=== PATIENT | male | born 1965 | race African-American/Black ===

== ENCOUNTER 2022-11-18 18:09 | Emergency (ER) | payer OTHER ==
[2022-11-18 18:40] VITALS: BP 135/93; PULSE 78; RESP 18; TEMP 98.4; BMI 33.0
[2022-11-18] MEDS ORDERED: KETOROLAC TROMETHAMINE 30 MG/1 ML VIAL IM ONE (19:48)
[2022-11-18] MEDS ORDERED: KETOROLAC TROMETHAMINE 30 MG/1 ML VIAL ONE (19:50)
== END 2022-11-18 20:42 | disposition left against medical advice (07) ==
LOC: JERFT 18:09
DX: M54.50 Low back pain, unspecified (principal); X50.0XXA Overexertion from strenuous movement or load, initial encounter; Y93.89 Activity, other specified; Y92.9 Unspecified place or not applicable
CPT/HCPCS: 99281-25

== ENCOUNTER 2024-01-15 12:56 | Emergency (ER) | payer BC, OTHER ==
[2024-01-15 13:10] VITALS: BP 152/111; PULSE 63; RESP 18; BMI 31.1
[2024-01-15] MEDS ORDERED: ACETAMINOPHEN 1000 MG/100 ML BAG IVPB ONE (13:33)
== END 2024-01-15 13:55 | disposition left against medical advice (07) ==
LOC: JER 12:56
DX: R60.0 Localized edema (principal); I10 Essential (primary) hypertension; R07.9 Chest pain, unspecified
CPT/HCPCS: 93005; 93010; 99284-25